=== PATIENT | male | born 1955 | race African-American/Black ===

== ENCOUNTER → 2023-11-27 | Outpatient (CLI) | payer OTHER, MEDICAID ==
[2023-11-27 10:20] LABS: Urine Bacteria None Seen /hpf (None Seen)
[2023-11-27 10:32] LABS: Basophils # (auto) 0.1 10 ^3/uL (0-0.2); Basophils % (auto) 0.9 % (0.0-2.0); Eosinophils # (auto) 0.4 10 ^3/uL (0-0.8); Eosinophils % (auto) 4.7 % (0.0-7.0); Hemoglobin 15.3 g/dL (13.5-17.5); Lymphocytes # (auto) 3.1 10 ^3/uL (0.4-5.4); Lymphocytes % (auto) 39.3 % (10.0-50.0); Mean Corpuscular Hemoglobin 28.1 pg (28.0-32.0); Mean Corpuscular Hgb Conc. 34.7 g/dL (32.0-36.0); Mean Corpuscular Volume 81.1 fL (80.0-100.0); Monocytes # (auto) 0.4 10 ^3/uL (0-1.3); Neutrophils % (auto) 50.1 % (37.0-80.0); Nucleated Red Blood Cells % 0.1 %; Platelet Count (auto) 348 10^3/uL (140-450); Red Blood Cells 5.43 10^6/uL (4.5-5.90); Red Cell Distribution Width 16.2 % (11.8-14.3); White Blood Cell 7.9 10^3/uL (4.4-10.8)
[2023-11-27 10:40] LABS: Urine Blood TRACE /uL (Negative); Urine Clarity Clear (Clear); Urine Color Light-Yellow (Yellow); Urine Protein, UAD Negative (Negative); Urine Specific Gravity 1.012 (1.001-1.035); Urine Urobilinogen Normal (Negative); Urine WBC 2 /hpf (0 - 3)
[2023-11-27 11:00] LABS: Alanine Aminotransferase 13 U/L (7-40); Albumin 4.6 g/dL (3.2-4.8); Alkaline Phosphatase 102 U/L (46-116); Anion Gap 8 (5-15); Aspartate Aminotransferase 9 U/L (13-40); BUN/Creatinine Ratio 7.7 (10.0-20.0); Bilirubin, Total 0.5 mg/dL (0.2-1.0); Blood Urea Nitrogen 7 mg/dL (9-23); Calcium 10.2 mg/dL (8.7-10.4); Carbon Dioxide 27 mmol/L (20-31); Chloride 108 mmol/L (98-107); Cholesterol 147 mg/dL (< 200); Glucose 98 mg/dL (74-106); HDL Cholesterol 64 mg/dL (40-59); LDL Cholesterol 67 mg/dL (< 100); Potassium 3.8 mmol/L (3.5-5.1); Sodium 143 mmol/L (136-145); Triglycerides 70 mg/dL (< 150)
[2023-11-27 11:01] LABS: Total Protein 7.5 g/dL (5.7-8.2)
[2023-11-27 12:08] LABS: Uric Acid 5.6 mg/dL (3.7-9.2)
[2023-11-28 07:06] LABS: RPR Non Reactive (Non Reactive)
[2023-11-30 10:20] LABS: Hepatitis A Total Antibody Positive (Negative); Hepatitis B Core IgM Negative; Hepatitis B Core Total AB Negative (Negative)
[2023-11-30 10:21] LABS: Hepatitis B Surface Antibody Positive (Negative); Hepatitis B Surface Antigen Negative (Negative)
[2023-11-30 10:28] LABS: Hepatitis C Antibody Reactive (Negative)
== END | disposition home or self-care (01) ==
LOC: LAB 10:00
DX: Z00.01 Encounter for general adult medical examination with abnormal findings (principal); Z12.11 Encounter for screening for malignant neoplasm of colon; Z11.3 Encounter for screening for infections with a predominantly sexual mode of transmission; Z12.5 Encounter for screening for malignant neoplasm of prostate; I10 Essential (primary) hypertension
CPT/HCPCS: 36415; 80053; 80061; 81001; 82306; 83036; 83880; 84550; 85025; 86592; 86703; 86704; 86705; 86706; 86708; 86803; 87340

== ENCOUNTER → 2024-03-04 | Outpatient (CLI) | payer OTHER, MEDICAID ==
[2024-03-04 10:51] LABS: Urine Blood Negative /uL (Negative); Urine Clarity Clear (Clear); Urine Color Light-Yellow (Yellow); Urine Protein, UAD Negative (Negative); Urine Specific Gravity 1.019 (1.001-1.035); Urine Urobilinogen Normal (Negative); Urine pH 5.5 (5.0-9.0)
[2024-03-04 10:57] LABS: Basophils # (auto) 0 10 ^3/uL (0-0.2); Basophils % (auto) 0.2 % (0.0-2.0); Eosinophils # (auto) 0.2 10 ^3/uL (0-0.8); Eosinophils % (auto) 4.1 % (0.0-7.0); Hematocrit 43.3 % (41.0-53.0); Hemoglobin 14.6 g/dL (13.5-17.5); Lymphocytes % (auto) 36.8 % (10.0-50.0); Mean Corpuscular Hemoglobin 27.2 pg (28.0-32.0); Mean Corpuscular Hgb Conc. 33.7 g/dL (32.0-36.0); Mean Corpuscular Volume 80.6 fL (80.0-100.0); Monocytes # (auto) 0.2 10 ^3/uL (0-1.3); Monocytes % (auto) 3.4 % (0.0-12.0); Neutrophils # (auto) 3.1 10 ^3/uL (1.6-8.6); Neutrophils % (auto) 55.5 % (37.0-80.0); Nucleated Red Blood Cells % 0.3 %; Platelet Count (auto) 362 10^3/uL (140-450); Red Blood Cells 5.37 10^6/uL (4.5-5.90); White Blood Cell 5.5 10^3/uL (4.4-10.8)
[2024-03-04 11:16] LABS: Cholesterol 170 mg/dL (< 200); Triglycerides 52 mg/dL (< 150)
[2024-03-04 11:19] LABS: HDL Cholesterol 54 mg/dL (40-59)
[2024-03-04 11:23] LABS: LDL Cholesterol 110 mg/dL (< 100)
== END | disposition home or self-care (01) ==
LOC: LAB 10:06
DX: Z12.5 Encounter for screening for malignant neoplasm of prostate (principal); I10 Essential (primary) hypertension; R73.03 Prediabetes; E55.9 Vitamin D deficiency, unspecified
CPT/HCPCS: 36415; 80061; 81003; 82306; 83036; 84443; 85025; G0103; 84153

== ENCOUNTER 2024-03-31 10:30 | Emergency (ER) | payer OTHER, MEDICAID ==
[~2024-03-31] VITALS: Ht 182.9 cm; Wt 61.7 kg
--- NOTE | 2024-03-31 10:44 | ED.PDOC ---
HPI Comments 68 y/o M, with PMHX of COPD and HTN presents to the ED for CC of chest pain. Patient states, that he has been experiencing substernal non-radiating chest pain with associated symptoms of shortness of breath and palliations x3days. Patient relays, that he went to see his PCP a couple of days ago and was prescribed a medication for possible colon cancer; believes symptoms may be related to starting new medication. Patient denies fever, chills, dizziness, lightheadedness, or weakness. No other symptoms or modifying factors at this time. Chief Complaint: Chest Pain Time Seen by MD: 10:30 Reviewed Notes: Nurses Notes, Medications, Allergies Information Source: Patient Mode of Arrival: Ambulatory Severity: Moderate Timing: Days Duration: Since onset Prehospital treatment: None Location: Substernal Radiation: No Radiation Cardiac Risk Factors: HTN PE Risk Factors: None History of: None Modifying Factors: Nothing Associated Signs and Symptoms: None Past Medical History PAST MEDICAL HISTORY: COPD, HTN Surgical History: Denies all surgeries Family History Family History: Unknown Social History Smoker: Non-Smoker Alcohol: Denies ETOH Use Drugs: Denies Drug Use Lives In: Home Constitutional: denies: chills, diaphoresis, fatigue, fever, malaise, sweats, weakness, others EENTM: denies: blurred vision, double vision, ear bleeding, ear discharge, ear drainage, ear pain, ear ringing, eye pain, eye redness, hearing loss, mouth pain, mouth swelling, nasal discharge, nose bleeding, nose congestion, nose pain, photophobia, tearing, throat pain, throat swelling, voice changes, others Respiratory: reports: shortness of breath; denies: cough, hemoptysis, orthopnea, SOB at rest, SOB with excertion, stridor, wheezing, others Cardiovascular: reports: chest pain, palpitations; denies: dizzy spells, diaphoresis, Dyspnea on exertion, edema, irregular heart beat, left arm pain, lightheadedness, PND, syncope, others Gastrointestinal: denies: abdomen distended, abdominal pain, blood streaked bowels, constipated, diarrhea, dysphagia, difficulty swallowing, hematemesis, melena, nausea, poor appetite, poor fluid intake, rectal bleeding, rectal pain, vomiting, others Genitourinary: denies: burning, dysuria, flank pain, frequency, hematuria, incontinence, penile discharge, penile sore, pain, testicle pain, testicle swelling, urgency, others Neurological: denies: dizziness, fainting, headache, left sided numbness, left sided weakness, numbness, paresthesia, pre-existing deficit, right sided numbness, right sided weakness, seizure, speech problems, tingling, tremors, weakness, others Musculoskeletal: denies: back pain, gout, joint pain, joint swelling, muscle pain, muscle stiffness, neck pain, others Integumetry: denies: bruises, change in color, change in hair/nails, dryness, laceration, lesions, lumps, rash, wounds, others Allergic/Immunocompromised: denies: Difficulty Healing, Frequent Infections, Hives, Itching, others Hematologic/Lymphatic: denies: anemia, blood clots, easy bleeding, easy bruising, swollen glands, others Endocrine: denies: excessive hunger, excessive sweating, excessive thirst, excessive urination, flushing, intolerance to cold, intolerance to heat, unexplained weight gain, unexplained weight loss, others Psychiatric: denies: anxiety, bipolar disorder, depression, hopeless, panic disorder, schizophrenia, sleepless, suicidal, others All Other Systems: Reviewed and Negative Physical Exam General Appearance: Moderate Distress HEENT: Normal ENT Inspection, Pharynx Normal, TMs Normal Neck: Full Range of Motion, Non-Tender, Normal, Normal Inspection Respiratory: Respiratory Distress, Wheezing Cardiovascular: No Edema, No JVD, No Murmur, No Gallop, Normal Peripheral Pulses, Regular Rate/Rhythm Breast Exam: Deferred Gastrointestinal: No Organomegaly, Non Tender, No Pulsatile Mass, Normal Bowel Sounds, Soft Genitalia: Deferred Pelvic: Deferred Rectal: Deferred Extremities: Normal inspection Musculoskeletal : Apperance: Normal Neurologic: Alert Cerebellar Function: NOT DONE Reflexes: NOT DONE Skin: Dry, Normal Color, Warm Peripheral Pulses: 3+ Radial (R), 3+ Radial (L) Lymphatic: No Adenopathy Was a procedure done? Was a procedure done?: No CP Differential Dx Differential Diagnosis: A-fib, A-Flutter, Angina, Anxiety / Panic Attack, Atrial Dysrhythmia, Electrolyte Disorder Differential Diagnosis: Angina, Chest Wall Pain, Costochondritis X-Ray, Labs, Meds, VS Vital Signs Date Time Temp Pulse Resp B/P (MAP) Pulse Ox O2 Delivery O2 Flow Rate FiO2 03/31/24 11:38 84 03/31/24 11:19 98.1 88 18 123/78 (93) 96 98.1 03/31/24 11:19 88 18 96 Room Air 03/31/24 10:56 18 99 Room Air* 0 21 03/31/24 10:45 98.8 88 18 139/82 (101) 98 03/31/24 10:38 74 Lab Test 03/31/24 11:38 03/31/24 10:47 Range/Units Troponin I High Sensitivity 4 5 </=54 ng/L White Blood Count 11.9 H 4.4-10.8 10^3/uL Red Blood Count 5.47 4.5-5.90 10^6/uL Hemoglobin 14.9 13.5-17.5 g/dL Hematocrit 43.1 41.0-53.0 % Mean Corpuscular Volume 78.8 L 80.0-100.0 fL Mean Corpuscular Hemoglobin 27.2 L 28.0-32.0 pg Mean Corpuscular Hemoglobin Concent 34.5 32.0-36.0 g/dL Red Cell Distribution Width 16.0 H 11.8-14.3 % Platelet Count 329 140-450 10^3/uL Mean Platelet Volume 6.8 L 6.9-10.8 fL Neutrophils (%) (Auto) 74.5 37.0-80.0 % Lymphocytes (%) (Auto) 18.9 10.0-50.0 % Monocytes (%) (Auto) 5.3 0.0-12.0 % Eosinophils (%) (Auto) 0.8 0.0-7.0 % Basophils (%) (Auto) 0.5 0.0-2.0 % Neutrophils # (Auto) 8.9 H 1.6-8.6 10 ^3/uL Lymphocytes # (Auto) 2.2 0.4-5.4 10 ^3/uL Monocytes # (Auto) 0.6 0-1.3 10 ^3/uL Eosinophils # (Auto) 0.1 0-0.8 10 ^3/uL Basophils # (Auto) 0.1 0-0.2 10 ^3/uL Nucleated Red Blood Cells 0.5 % Sodium Level 141 136-145 mmol/L Potassium Level 3.7 3.5-5.1 mmol/L Chloride Level 105 98-107 mmol/L Carbon Dioxide Level 27 20-31 mmol/L Anion Gap 9 5-15 Blood Urea Nitrogen 9 9-23 mg/dL Creatinine 0.99 0.700-1.30 mg/dL Glomerular Filtration Rate Calc 82 >90 mL/min BUN/Creatinine Ratio 9.1 L 10.0-20.0 Serum Glucose 102 74-106 mg/dL Lactic Acid Level 1.3 0.4-2.0 mmol/L Calcium Level 10.2 8.7-10.4 mg/dL Total Bilirubin 1.3 H 0.2-1.0 mg/dL Aspartate Amino Transferase (AST) 15 13-40 U/L Alanine Aminotransferase (ALT) 15 7-40 U/L Alkaline Phosphatase 112 46-116 U/L Total Protein 7.9 5.7-8.2 g/dL Albumin 4.9 H 3.2-4.8 g/dL Current Medications Medications (Trade) Dose Ordered Sig/Joanie Route Start Time Stop Time Status Last Admin Methylprednisolone Sodium Succinate (Solu Medrol) 125 mg ONCE ONCE IV 03/31/24 10:45 03/31/24 10:46 DC 03/31/24 11:32 Magnesium Sulfate/ Dextrose 100 ml @ 100 mls/hr ONCE ONCE IV 03/31/24 10:45 03/31/24 11:44 DC 03/31/24 11:33 Albuterol (Ventolin Medneb) 5 mg ONCE ONCE NEB 03/31/24 10:45 03/31/24 10:46 DC 03/31/24 10:56 Ipratropium Guy (Atrovent Medneb) 0.5 mg ONCE ONCE NEB 03/31/24 10:45 03/31/24 10:46 DC 03/31/24 10:56 Aspirin 325 mg ONCE ONCE PO 03/31/24 10:45 03/31/24 10:46 DC 03/31/24 11:[address] [address] Ph: [phone] DIAGNOSTIC IMAGING Diagnostic Imaging Report : [id number] Signed PATIENT: CHERIE FORMAN ACCT: [id number] UNIT: [id number] : 1955 LOC: ER ROOM / BED: / AGE / SEX: 68 / M ADM STATUS: REG ER SERVICE 1042 ORDERING PHYSICIAN: AURY WESTBROOK MD PROCEDURE(s): CXRP - CHEST PORTABLE REASON: CP ORDER NUMBER(s): [id number], ACCESSION NUMBER(s): [id number] EXAM: XY CHEST PORTABLE HISTORY: CP COMPARISON: None TECHNIQUE: Portable upright AP view of the chest was performed. FINDINGS: The lungs are diffusely hyperexpanded and hyperlucent. There are mild opacities in the bilateral lung bases medially, slightly greater on the left. No pneumothorax or pulmonary edema. The heart is not enlarged. There is thoracic degenerative disc disease. IMPRESSION: 1. Bilateral lung base opacities may represent scarring, atelectasis, and/ or mild pneumonia. Comparison with old films would be necessary to make this distinction. 2. Probable emphysema. ATED BY: JIMMY CHANEL MD DICTATED DATE/TIME: 03/31/24 1102 SIGNED BY: JIMMY CHANEL MD SIGNED DATE/TIME: 03/31/24 1102 CC: Patient alert. Shortness a breath. Barrel-shaped chest. Saturation 96% on room air. Having difficulty walking. He was short of breath. Chest x-ray reviewed does show pneumonia. Continues to have chest discomfort. Establish intravenous access. Was given steroid. Was given magnesium. Was given breathing treatment. Was given aspirin. EKG reviewed does show changes. Explained to the patient. Continue cardiac monitoring. Time of 1ST Reevaluation: 11:00 Reevaluation 1ST: Unchanged Patient Education/Counseling: Diagnosis, Treatment Family Education/Counseling: No Family Present Additional Information I reviewed the following notes from patient's past medical encounters: NONE The following tests were ordered, and results were reviewed by me: LABS, EKGX3, CXR I reviewed and agreed with the following test results read by other providers: CXR I discussed treatment and results with medical personnel and: PATIENT Departure 1 Departure Time of Disposition: 12:02 Impression: Primary Impression: Pneumonia Qualified Codes: J18.9 - Pneumonia, unspecified organism Additional Impressions: Pneumonitis COPD exacerbation Disposition: ADMITTED INPATIENT Admit to: Med Surg Condition: Guarded Critical Care Note Critical Care Time?: Yes (45 min-critical care time only) Stability Stability form required: No Heart Score Heart Score: Heart Score Response (Comments) Value History Moderate Suspicious 1 EKG N/A 0 Age >65 2 Risk Factors 1 or 2 risk factors 1 Troponin N/A 0 Total 4 I personally scribed for AURY WESTBROOK MD ([email or web address]) on 03/31/24 at 10:43. Electronically submitted by Kim Kirk ([email or web address]). I personally scribed for AURY WESTBROOK MD ([email or web address]) on 03/31/24 at 10:56. Electronically submitted by Kim Kirk ([email or web address]). I personally scribed for AURY WESTBROOK MD ([email or web address]) on 03/31/24 at 11:36. Electronically submitted by Kim Kirk ([email or web address]). I personally scribed for AURY WESTBROOK MD ([email or web address]) on 03/31/24 at 12:43. Electronically submitted by Kim Kirk ([email or web address]). I personally scribed for AURY WESTBROOK MD ([email or web address]) on 03/31/24 at 12:47. Electronically submitted by Kim Kirk ([email or web address]). AURY WESTBROOK MD Mar 31, 2024 10:43
[2024-03-31] MEDS: ALBUTEROL SULF 2.5 MG/0.5ML(0.5%) NEB SOLN NEB ONE (10:56)
[2024-03-31] MEDS: IPRATROPIUM BROM 0.5 MG/2.5ML INH SOL NEB ONE (10:56)
--- NOTE | 2024-03-31 11:05 | DVH ---
EXAM: XY CHEST PORTABLE HISTORY: CP COMPARISON: None TECHNIQUE: Portable upright AP view of the chest was performed. FINDINGS: The lungs are diffusely hyperexpanded and hyperlucent. There are mild opacities in the bilateral oma g bases medially, slightly greater on the left. No pneumothorax or pulmonary edema. The heart is not enlarged. There is thoracic degenerative disc disease. IMPRESSION: 1. Bilateral lung base opacities may represent scarring, atelectasis, and/ or mild pneumonia. Compar duane with old films would be necessary to make this distinction. 2. Probable emphysema.
[2024-03-31 11:12] LABS: Basophils # (auto) 0.1 10 ^3/uL (0-0.2); Basophils % (auto) 0.5 % (0.0-2.0); Eosinophils # (auto) 0.1 10 ^3/uL (0-0.8); Eosinophils % (auto) 0.8 % (0.0-7.0); Hematocrit 43.1 % (41.0-53.0); Hemoglobin 14.9 g/dL (13.5-17.5); Lymphocytes # (auto) 2.2 10 ^3/uL (0.4-5.4); Lymphocytes % (auto) 18.9 % (10.0-50.0); Mean Corpuscular Hemoglobin 27.2 pg (28.0-32.0); Mean Corpuscular Hgb Conc. 34.5 g/dL (32.0-36.0); Mean Corpuscular Volume 78.8 fL (80.0-100.0); Monocytes # (auto) 0.6 10 ^3/uL (0-1.3); Monocytes % (auto) 5.3 % (0.0-12.0); Neutrophils # (auto) 8.9 10 ^3/uL (1.6-8.6); Neutrophils % (auto) 74.5 % (37.0-80.0); Nucleated Red Blood Cells % 0.5 %; Platelet Count (auto) 329 10^3/uL (140-450); Red Blood Cells 5.47 10^6/uL (4.5-5.90); White Blood Cell 11.9 10^3/uL (4.4-10.8)
[2024-03-31 11:23] LABS: Alanine Aminotransferase 15 U/L (7-40); Alkaline Phosphatase 112 U/L (46-116); Anion Gap 9 (5-15); Aspartate Aminotransferase 15 U/L (13-40); BUN/Creatinine Ratio 9.1 (10.0-20.0); Blood Urea Nitrogen 9 mg/dL (9-23); Calcium 10.2 mg/dL (8.7-10.4); Carbon Dioxide 27 mmol/L (20-31); Chloride 105 mmol/L (98-107); Glucose 102 mg/dL (74-106); Potassium 3.7 mmol/L (3.5-5.1); Sodium 141 mmol/L (136-145); Total Protein 7.9 g/dL (5.7-8.2)
[2024-03-31 11:27] LABS: Albumin 4.9 g/dL (3.2-4.8); Bilirubin, Total 1.3 mg/dL (0.2-1.0)
[2024-03-31] MEDS: ASPirin 325 MG TAB PO ONE (11:30)
[2024-03-31] MEDS: methylPREDNISolone SOD SUCC 125 MG/2 ML VL IV ONE (11:32)
[2024-03-31] MEDS: MAGNESIUM SULFATE 1GM/100ML 100 ML IV ONE (11:33)
[2024-03-31] MEDS: AZITHROMYCIN 500MG/ 250ML 250 ML IV ONE (12:15)
[2024-03-31] MEDS: cefTRIAXone 1GM/50ML D5W 50 ML IV ONE (13:17)
[2024-03-31 14:07] VITALS: BP 119/72; PULSE 76; RESP 20; TEMP 98.3; O2SAT 97
--- NOTE | 2024-03-31 19:05 | ECG ---
[facility] Test Date: 2024-03-31 Test Time: 11:35:36 Pat Name: CHERIE FORMAN Department: ED Room: Gender: M [employer]: [place] : 1955 Requested By: AURY WESTBROOK Order Number: [id number] Reading MD: Sky Self Measurements Intervals [place] Rate: 84 P: 83 NE: 149 QRS: 53 QRSD: 153 T: -8 QT: 399 QTc: 472 Interpretive Statements Sinus rhythm Supraventricular bigeminy Right bundle branch block Artifact in lead(s) I,III,aVR,aVL,V1,V2,V3,V4,V5,V6 Electronically Signed On 04-01-2024 12:10:15 PST by Sky Self Please click the below link to view image of tracing.
--- NOTE | 2024-04-01 00:32 | ECG ---
[facility] [place]24-03-31 Test Time: 10:38:31 Pat Name: CHERIE FORMAN Department: ER Room: Gender: M [employer]: : 1955 Requested By: AURY WESTBROOK Order Number: [id number] Reading MD: Sky Self Measurements Intervals [place] Rate: 74 P: 74 WA: 161 QRS: 72 QRSD: 134 T: 0 QT: 432 QTc: 480 Interpretive Statements Sinus rhythm Supraventricular bigeminy Right bundle branch block Electronically Signed On 04-01-2024 12:10:02 PST by Sky Self Please click the below link to view image of tracing.
== END 2024-03-31 16:03 | disposition left against medical advice (07) ==
LOC: ER 10:30
DX: J18.9 Pneumonia, unspecified organism (principal); J44.1 Chronic obstructive pulmonary disease with (acute) exacerbation; I10 Essential (primary) hypertension
CPT/HCPCS: 36415; 71045; 80053; 83605; 84484; 85025; 87040; 93005; 94640; 96365; 96367; 96375; 99291; J0696; J2919; J3475

== ENCOUNTER → 2024-04-05 | Outpatient (CLI) | payer OTHER, MEDICAID ==
[~2024-04-05] VITALS: Ht 182.9 cm; Wt 59.9 kg
[2024-04-05] MEDS: REGADENOSON 0.4 MG/5 ML SYRG IV ONE ×2 (10:26→10:34)
--- NOTE | 2024-04-05 20:12 | DVHSR ---
APPROVED REPORT Exam: Nuclear Stress Test Indication: Chest pain Stress Tech: Jovanna Abreu Ht: 6 ft 0 in Wt: 132 lbs BSA: 1.79 m2 HR: 53 bpm BP: 163/88 mmHg BMI: 17.90 Rhythm: Bradycardia Medical History Medical History: COPD, HTN, HLD, Former Smoker Allergies: No known drug allergies Stress Test Details Stress Test: Pharmacologic stress testing performed using 0.4 mg of regadenoson per 5 mL given IV ov er 10 seconds. Reason for pharmacologic stress test: Chest Pain. HR Resting HR: 53 bpmMax Heart Rate (APMHR): 151.092693 bpm Max HR Achieved: 115 bpmTarget HR (85% APMHR): 128.625721 bpm % of APMHR: 76.16 Recovery HR: 64 bpm BP Resting BP: 163/88 mmHg Recovery BP: 147/87 mmHg ECG Resting ECG: Bradycardia Clinical Reason for Termination: Completed protocol Stress ECG Conclusion baseline ecg shows SR, RBBB, PACs noted lvef 56% inferior wall fixed defect noted, could be image artifact vs remote infarct no severe ischemia noted NM EXAM: Myocardial Perfusion REST/STRESS Imaging Protocol: Rest Tc-99m/Stress Tc-99m 1 day Resting Data Rest SPECT myocardial perfusion imaging was performed in supine position 60 minutes following the int ravenous injection of 12.4 mCi of Tc-99m Sestamibi. Time of rest injection: 0855 Time of rest imagin Administration Route: IV Administration Site: Right Hand Pharmacologic Stress Pharmacologic stress test was performed by injecting Regadenoson 0.4 mg IV push followed by the intra venous injection of 31.5 mCi of Tc-99m Sestamibi. Time of stress injection: 1026 Time of stress imagin Administration Route: IV Administration Site: Right Hand Gated Stress SPECT was performed 60 minutes after stress injection. The images were gated to evaluate regional wall motion and calculate left ventricular ejection fracti on. Stress only was performed in the Supine position. Nuclear Conclusion baseline ecg shows SR, RBBB, PACs noted lvef 56% inferior wall fixed defect noted, could be image artifact vs remote infarct no severe ischemia noted
== END | disposition home or self-care (01) ==
LOC: XY 08:31
PROVIDERS: ATTEND Internal Medicine
DX: R00.1 Bradycardia, unspecified (principal); R07.9 Chest pain, unspecified
CPT/HCPCS: 78452; 93017; A9500; J2785

== ENCOUNTER 2024-06-16 08:02 | Emergency (ER) | payer OTHER, MEDICAID ==
[~2024-06-16] VITALS: Ht 185.4 cm; Wt 68.0 kg
[2024-06-16 08:25] VITALS: PULSE 78; RESP 24; O2SAT 96
--- NOTE | 2024-06-16 08:47 | ED.PDOC ---
SOB-HPI HPI Comments 69 y/o M, BIBA, with PMHx of COPD and HTN presents to the ED for CC of shortness of breath. EMS reports, patient is coming from home where he complains of shortness of breath with associated symptoms of cough, nasal congestion, and chills x1 week (per EMS). He denies any new symptoms other than 1 day hx of SOB starting this morning. Patient relays, using a nebulizer with no relief of symptoms at home. Patient endorses, symptoms worsening soon after at 0100 this morning (06/16/24) with inability to sleep. In route to ED, patient was given a breath treatment with the resolution of the dyspnea. SPO2 stating at 95% on room air. Patient denies fever, body-aches, and loss of taste or smell. No other associated symptoms, modifiers, recent injuries or sick contacts present at this time. Chief Complaint: Shortness of Breath Time Seen by MD: 08:40 Primary Care Provider: UNKNOWN Reviewed notes: Nurses Notes, Candy Butcher Notes, Medications, Allergies Information Source: Patient, Emergency Med Personnel Mode of Arrival: EMS Severity: Moderate Timing: Weeks Duration: Since onset Context: At Rest PE Risk Factors: None History of: COPD Prehospital treatment: None Associated Signs and Symptoms: None Past Medical History PAST MEDICAL HISTORY: COPD, HTN Surgical History: Denies all surgeries Family History Family History: Unknown Social History Smoker: Non-Smoker Alcohol: Denies ETOH Use Drugs: Denies Drug Use Lives In: Home Constitutional: reports: chills; denies: diaphoresis, fatigue, fever, malaise, sweats, weakness, others EENTM: reports: nose congestion; denies: blurred vision, double vision, ear bleeding, ear discharge, ear drainage, ear pain, ear ringing, eye pain, eye redness, hearing loss, mouth pain, mouth swelling, nasal discharge, nose bleeding, nose pain, photophobia, tearing, throat pain, throat swelling, voice changes, others Respiratory: reports: cough, shortness of breath; denies: hemoptysis, orthopnea, SOB at rest, SOB with excertion, stridor, wheezing, others Cardiovascular: denies: chest pain, dizzy spells, diaphoresis, Dyspnea on exertion, edema, irregular heart beat, left arm pain, lightheadedness, palpitations, PND, syncope, others Gastrointestinal: denies: abdomen distended, abdominal pain, blood streaked bowels, constipated, diarrhea, dysphagia, difficulty swallowing, hematemesis, melena, nausea, poor appetite, poor fluid intake, rectal bleeding, rectal pain, vomiting, others Genitourinary: denies: burning, dysuria, flank pain, frequency, hematuria, incontinence, penile discharge, penile sore, pain, testicle pain, testicle swelling, urgency, others Neurological: denies: dizziness, fainting, headache, left sided numbness, left sided weakness, numbness, paresthesia, pre-existing deficit, right sided numbness, right sided weakness, seizure, speech problems, tingling, tremors, weakness, others Musculoskeletal: denies: back pain, gout, joint pain, joint swelling, muscle pain, muscle stiffness, neck pain, others Integumetry: denies: bruises, change in color, change in hair/nails, dryness, laceration, lesions, lumps, rash, wounds, others Allergic/Immunocompromised: denies: Difficulty Healing, Frequent Infections, Hives, Itching, others Hematologic/Lymphatic: denies: anemia, blood clots, easy bleeding, easy bruising, swollen glands, others Endocrine: denies: excessive hunger, excessive sweating, excessive thirst, excessive urination, flushing, intolerance to cold, intolerance to heat, une xplained weight gain, unexplained weight loss, others Psychiatric: denies: anxiety, bipolar disorder, depression, hopeless, panic disorder, schizophrenia, sleepless, suicidal, others All Other Systems: Reviewed and Negative Physical Exam General Appearance: No Apparent Distress, Normal HEENT: Normal ENT Inspection, Pharynx Normal Neck: Full Range of Motion, Non-Tender, Normal, Normal Inspection Respiratory: Chest Non-Tender, Lungs Clear, No Accessory Muscle Use, No Respiratory Distress, Normal Breath Sounds Cardiovascular: No Edema, No Murmur, No Gallop, Normal Peripheral Pulses, Regular Rate/Rhythm Breast Exam: Deferred Gastrointestinal: No Organomegaly, Non Tender, No Pulsatile Mass, Normal Bowel Sounds, Soft Genitalia: Deferred Pelvic: Deferred Rectal: Deferred Extremities: No calf tenderness, Normal capillary refill, Normal inspection, No rmal range of motion, Non-tender, No pedal edema Musculoskeletal : Apperance: Normal Neurologic: Alert, No Motor Deficits, Normal Affect, Normal Mood, No Sensory Deficits Cerebellar Function: Normal Reflexes: Normal Skin: Dry, Normal Color, Warm Lymphatic: No Adenopathy EKG EKG : Pulse Rate (adult): 74 [place]: Normal Cardiac Rhythm: NSR Block: None Hypertrophy: None ST: Normal Was a procedure done? Was a procedure done?: No Differential Dx Differential Diagnosis: Asthma, Bronchitis, CHF, COPD, Sinusitis, Pharyngitis, URI X-Ray, Labs, Meds, VS Vital Signs Date Time Temp Pulse Resp B/P (MAP) Pulse Ox O2 Delivery O2 Flow Rate FiO2 06/16/24 08:47 74 06/16/24 08:26 74 06/16/24 08:25 78 24 96 Room Air* 0 21 06/16/24 08:25 98.6 78 24 148/80 (102) 96 98.6 06/16/24 08:15 98.1 80 18 134/76 (95) 96 98.1 Lab Test 06/16/24 09:38 06/16/24 09:08 06/16/24 08:35 Range/Units White Blood Count 15.8 H 4.4-10.8 10^3/uL Red Blood Count 5.75 4.5-5.90 10^6/uL Hemoglobin 15.8 13.5-17.5 g/dL Hematocrit 45.9 41.0-53.0 % Mean Corpuscular Volume 79.8 L 80.0-100.0 fL Mean Corpuscular Hemoglobin 27.4 L 28.0-32.0 pg Mean Corpuscular Hemoglobin Concent 34.4 32.0-36.0 g/dL Red Cell Distribution Width 16.5 H 11.8-14.3 % Platelet Count 300 140-450 10^3/uL Mean Platelet Volume 6.6 L 6.9-10.8 fL Neutrophils (%) (Auto) 94.8 H 37.0-80.0 % Lymphocytes (%) (Auto) 3.5 L 10.0-50.0 % Monocytes (%) (Auto) 1.4 0.0-12.0 % Eosinophils (%) (Auto) 0.1 0.0-7.0 % Basophils (%) (Auto) 0.2 0.0-2.0 % Neutrophils # (Auto) 15.0 H 1.6-8.6 10 ^3/uL Lymphocytes # (Auto) 0.6 0.4-5.4 10 ^3/uL Monocytes # (Auto) 0.2 0-1.3 10 ^3/uL Eosinophils # (Auto) 0 0-0.8 10 ^3/uL Basophils # (Auto) 0 0-0.2 10 ^3/uL Nucleated Red Blood Cells 0.0 % Sodium Level 138 136-145 mmol/L Potassium Level 4.5 3.5-5.1 mmol/L Chloride Level 105 98-107 mmol/L Carbon Dioxide Level 25 20-31 mmol/L Anion Gap 8 5-15 Blood Urea Nitrogen 16 9-23 mg/dL Creatinine 0.96 0.700-1.30 mg/dL Glomerular Filtration Rate Calc 85 >90 mL/min BUN/Creatinine Ratio 16.7 10.0-20.0 Serum Glucose 140 H 74-106 mg/dL Calcium Level 9.6 8.7-10.4 mg/dL Total Bilirubin 0.4 0.2-1.0 mg/dL Aspartate Amino Transferase (AST) 37 13-40 U/L Alanine Aminotransferase (ALT) 66 H 7-40 U/L Alkaline Phosphatase 96 46-116 U/L Total Protein 6.7 5.7-8.2 g/dL Albumin 4.3 3.2-4.8 g/dL Influenza Type A Antigen Negative Negative Influenza Type B Antigen Negative Negative SARS-CoV-2 Antigen (Rapid) Negative NEGATIVE Urine Color Pending Urine Clarity Pending Urine pH Pending Urine Specific [place] Pending Urine Protein Pending Urine Ketones Pending Urine Blood Pending Urine Nitrite Pending Urine Bilirubin Pending Urine Urobilinogen Pending Urine Leukocyte Esterase Pending Urine RBC Pending Urine Microscopic WBC Pending Urine Squamous Epithelial Cells Pending Urine Bacteria Pending Urine Glucose Pending X-Ray, Labs, Meds, VS Comment 69 y/o M, BIBA, with PMHx of COPD and HTN presents to the ED for CC of shortness of breath. EMS reports, patient is coming from home where he complains of shortness of breath with associated symptoms of cough, nasal congestion, and chills x1 week (per EMS). He denies any new symptoms other than 1 day hx of SOB starting this morning. Patient relays, using a nebulizer with no relief of symptoms at home. Patient endorses, symptoms worsening soon after at 0100 this morning (06/16/24) with inability to sleep. In route to ED, patient was given a breath treatment with the resolution of the dyspnea. SPO2 stating at 95% on room air. Patient denies fever, body-aches, and loss of taste or smell. No other associated symptoms, modifiers, recent injuries or sick contacts present at this time. HE WAS WORKUP HERE HAS BENIGN INCLUDING X-RAY AND LABS. THE PATIENT WAS REQUESTING WHATEVER THEY GAVE ME ON THE AMBULANCE. It appears to be DuoNeb. As such, discharge the patient home with DuoNeb. He was asked to follow up with PCP in next 1 2 days return to the ER for new/worse/worsening symptoms. Time of 1ST Reevaluation: 09:20 Reevaluation 1ST: Unchanged Patient Education/Counseling: Diagnosis, Treatment Family Education/Counseling: No Family Present Departure 1 Departure Time of Disposition: 10:35 Impression: Primary Impression: COPD exacerbation Additional Impression: SOB (shortness of breath) Disposition: 01 HOME / SELF CARE / HOMELESS Condition: Good Discharged With: Self Critical Care Note Critical Care Time?: No Stability Stability form required: No Heart Score Heart Score: Heart Score Response (Comments) Value History N/A 0 EKG N/A 0 Age N/A 0 Risk Factors N/A 0 Troponin N/A 0 Total 0 I personally scribed for ESTEFANIA LIZ MD ([email or web address]) on 06/16/24 at 08:47. Electronically submitted by Kim Kirk [email or web address]). ESTEFANIA LIZ MD Jun 16, 2024 08:47
[2024-06-16 09:58] LABS: COVID19 ANTIGEN SOFIA FIA NEGATIVE (NEGATIVE)
[2024-06-16 09:59] LABS: Rapid Influenza A Negative (Negative); Rapid Influenza B Negative (Negative)
[2024-06-16 09:59] LABS: Basophils # (auto) 0 10 ^3/uL (0-0.2); Basophils % (auto) 0.2 % (0.0-2.0); Eosinophils # (auto) 0 10 ^3/uL (0-0.8); Eosinophils % (auto) 0.1 % (0.0-7.0); Hematocrit 45.9 % (41.0-53.0); Hemoglobin 15.8 g/dL (13.5-17.5); Lymphocytes # (auto) 0.6 10 ^3/uL (0.4-5.4); Lymphocytes % (auto) 3.5 % (10.0-50.0); Mean Corpuscular Hemoglobin 27.4 pg (28.0-32.0); Mean Corpuscular Hgb Conc. 34.4 g/dL (32.0-36.0); Mean Corpuscular Volume 79.8 fL (80.0-100.0); Monocytes # (auto) 0.2 10 ^3/uL (0-1.3); Monocytes % (auto) 1.4 % (0.0-12.0); Neutrophils % (auto) 94.8 % (37.0-80.0); Platelet Count (auto) 300 10^3/uL (140-450); Red Blood Cells 5.75 10^6/uL (4.5-5.90); Red Cell Distribution Width 16.5 % (11.8-14.3); White Blood Cell 15.8 10^3/uL (4.4-10.8)
[2024-06-16 10:13] LABS: Albumin 4.3 g/dL (3.2-4.8); Alkaline Phosphatase 96 U/L (46-116); Anion Gap 8 (5-15); Aspartate Aminotransferase 37 U/L (13-40); BUN/Creatinine Ratio 16.7 (10.0-20.0); Bilirubin, Total 0.4 mg/dL (0.2-1.0); Blood Urea Nitrogen 16 mg/dL (9-23); Calcium 9.6 mg/dL (8.7-10.4); Carbon Dioxide 25 mmol/L (20-31); Chloride 105 mmol/L (98-107); Potassium 4.5 mmol/L (3.5-5.1); Sodium 138 mmol/L (136-145); Total Protein 6.7 g/dL (5.7-8.2)
[2024-06-16 10:17] LABS: Alanine Aminotransferase 66 U/L (7-40); Glucose 140 mg/dL (74-106)
[2024-06-16 10:22] LABS: Urine Bacteria None Seen /hpf (None Seen)
[2024-06-16 10:33] LABS: Urine Blood Negative /uL (Negative); Urine Clarity Clear (Clear); Urine Color Light-Yellow (Yellow); Urine Protein, UAD Negative (Negative); Urine Specific Gravity 1.011 (1.001-1.035); Urine Squamous Epithelial Cell None Seen /hpf (<5); Urine Urobilinogen Normal (Negative); Urine WBC 2 /HPF (0-3); Urine pH 6.5 (5.0-9.0)
[2024-06-16] MEDS ORDERED: ALBU1NEB5 IN (10:47)
[2024-06-16] MEDS ORDERED: IPRIH INH (10:48)
[2024-06-16 11:00] VITALS: BP 112/76; PULSE 71; RESP 17; TEMP 98.4; O2SAT 97
--- NOTE | 2024-06-16 11:01 | DVH ---
CLINICAL INFORMATION: Shortness of breath. TECHNIQUE: Single AP portable chest radiograph was obtained. COMPARISON: XY CHEST PORTABLE on DOS: 03/31/24 FINDINGS: Lungs: Emphysematous changes with hyperaeration of the lungs and flattening of the diaphragm, similar to the prior exam. No focal consolidation, pneumothorax, or pleural effusion. Cardiac: Heart size is within normal limits. Pulmonary vasculature: Unremarkable. Mediastinum/jack: Unremarkable. Bones: No acute osseous abnormality identified. Other: No other significant findings. IMPRESSION: 1. No evidence of acute disease in the chest. 2. Emphysematous changes.
[2024-06-16] MEDS ORDERED: IPRA0.03 (11:34)
--- NOTE | 2024-06-16 18:52 | ECG ---
[facility] Test Date: 2024-06-16 Test Time: 08:24:00 Pat Name: CHERIE FORMAN Department: ED Room: Gender: M [employer]: BRAYDON : 1955 Requested By: ESTEFANIA LIZ Order Number: [id number] Reading MD: Measurements Intervals Onida Rate: 74 P: 82 WA: 134 QRS: 46 QRSD: 130 T: 56 QT: 397 QTc: 441 Interpretive Statements Sinus rhythm Probable left atrial enlargement Right bundle branch block Please click the below link to view image of tracing.
== END 2024-06-16 11:45 | disposition home or self-care (01) ==
LOC: EDUNIT# 08:02 → EDBD 08:02 → ER 08:02
DX: J44.1 Chronic obstructive pulmonary disease with (acute) exacerbation (principal); R06.02 Shortness of breath; I10 Essential (primary) hypertension; Z20.822 Contact with and (suspected) exposure to COVID-19
CPT/HCPCS: 36415; 71045; 80053; 81001; 85025; 87426; 87804; 93005